=== PATIENT | female | born 2000 | race Caucasian/White ===

== ENCOUNTER 2022-02-16 21:48 | Emergency (ER) | payer BC ==
[~2022-02-16] VITALS: Ht 160 cm; Wt 128.8 kg
[2022-02-16 23:09] LABS: BILIRUBIN,URINE NEGATIVE (NEGATIVE); CLARITY,URINE CLEAR; COLOR,URINE YELLOW; GLUCOSE, URINE (UA) NEGATIVE (NEGATIVE); KETONES,URINE NEGATIVE (NEGATIVE); LEUKOCYTE ESTERASE ,URINE NEGATIVE (NEGATIVE); NITRITE,URINE NEGATIVE (NEGATIVE); PROTEIN,URINE NEGATIVE (NEGATIVE)
[2022-02-16 23:20] LABS: BACTERIA,URINE MODERATE /HPF; WBC,URINE 0-2 /HPF
--- NOTE | 2022-02-16 23:27 | ED General ---
General Chief Complaint: Neurological Problems Stated Complaint: HEAD PAIN Nursing Triage Note: SUDDEN ONSET R FACIAL NUMBNESS, VISION LOSS IN RIGHT EYE LOWER HALF AT 1320 TODAY. REPORTS TACHYCARDIA WITH EPISODE THAT LASTED APPX 20 MINUTES. NOW C/O HEAD PAIN WITH MOVEMENT AND ANY STRAINING. APPX 1 YEAR AGO HAD TOTAL VISION LOSS X 1 MINUTE WITH COMPLETE RESOLUTION OF SYMPTOMS. Source of Information: Patient Exam Limitations: No Limitations History of Present Illness Date Seen by Provider: Feb 16, 2022 Time Seen by Provider: 23:27 Initial Comments Patient is a 21-year-old female who presents to the emergency room with a chief complaint of visual field defect right lower vision around 1230, 1 PM on 02-15-22. She states she was at work and noticed that she was talking that she could not see her right hand as she was gesturing out of her right eye. She states it appeared like "TV static" and I suggested "like a snowstorm" and she states yes. 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 She states symptoms lasted about 20 minutes. In addition to the visual field loss she felt some numbness to her right face. No difficulty speaking. She denies any unilateral weakness. She states around this time she also developed an occipital headache that became global. She states the headache is persisting currently. She currently now about 10 hours later has no visual field defect but continues to have a little bit of subjective decrease in sensation in her right face, right arm and right leg. No personal history of any significant medical problems. She takes some antidepressant medications and medications for sleep. Recently started Seroquel for sleep about a month and a half ago. She states earlier in the year she was working out at the gym and she had complete and total loss of bilateral vision that lasted for only a minute or so. No medical evaluation after this event. She denies fevers chills, URI symptoms. No flu or COVID concerns. She is on control. Not . Non-smoker. She states her father relates a history of "brain aneurysms" on his side of the family and mom has a history of cardiac disease on her side of the family. Nothing is making her headache any better or any worse. She maintains no weakness, balance, instability or coordination issues. 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) Severity: Mild Associated Systoms: Headaches Allergies and Home Medications Allergies Coded Allergies: No Known Drug Allergies (Unverified , 02/16/22) Patient Home Medication List Home Medication List Reviewed: Yes Review of Systems Review of Systems Constitutional: see HPI EENTM: other (visual field loss right eye - inferior portion - earlier in the day); No double vision Respiratory: no symptoms reported Cardiovascular: no symptoms reported Gastrointestinal: no symptoms reported Genitourinary: no symptoms reported Musculoskeletal: no symptoms reported Skin: no symptoms reported Psychiatric/Neurological: Headache, Numbness, Paresthesia All Other Systems Reviewed Negative Unless Noted: Yes Past Vrebtxc-Xmpguh-Lapnch Hx Past Medical History Last Menstrual Period: Feb 09, 2020 Physical Exam Vital Signs Vital Signs - First Documented 02/16/22 22:35 Temp 37.1 Pulse 116 Resp 20 B/P (MAP) 156/101 (119) Pulse Ox 94 O2 Delivery Room Air Capillary Refill : Less Than 3 Seconds Height, Weight, BMI Height: '" Weight: lbs. oz. kg; 50.00 BMI Method: General Appearance: No Apparent Distress, WD/WN, Obese Eyes: Bilateral Eye Normal Inspection, Bilateral Eye PERRL, Bilateral Eye EOMI HEENT: PERRL/EOMI (fundoscopic exam right eye - Normal), Pharynx Normal Neck: Full Range of Motion, Normal Inspection, Supple Respiratory: Lungs Clear, Normal Breath Sounds, No Accessory Muscle Use, No Respiratory Distress Cardiovascular: Regular Rate, Rhythm (100), Normal Peripheral Pulses Gastrointestinal: Non Tender, Soft Extremity: Normal Capillary Refill, Normal Inspection, Normal Range of Motion, Non Tender, No Calf Tenderness, No Pedal Edema Neurologic/Psychiatric: Alert, Oriented x3, Normal Mood/Affect, multifocal lens inspector II-XII Norm as Tested; No Abnormal Cerebellar Tests, No EOM Palsy, No Facial Droop, No Motor Weakness; Sensory Deficit (right side of face; RUE and RLE), Other (normal Finger to nose; neg romberg; normal gait) Skin: Normal Color, Warm/Dry Progress/Results/Core Measures Suspected Sepsis SIRS Temperature: Pulse: 116 Respiratory Rate: 20 Laboratory Tests 02/16/22 23:50: White Blood Count 8.3 Blood Pressure 156 /101 Mean: 119 Laboratory Tests 02/16/22 23:50: Creatinine 0.69, INR Comment 0.8, Platelet Count 312, Total Bilirubin 0.1 Results/Orders Lab Results Laboratory Tests Test 02/16/22 23:02 02/16/22 23:50 Range/Units Urine Color YELLOW Urine Clarity CLEAR Urine pH 6.0 5-9 Urine Specific [place] 1.025 H 1.016-1.022 Urine Protein NEGATIVE NEGATIVE Urine Glucose (UA) NEGATIVE NEGATIVE Urine Ketones NEGATIVE NEGATIVE Urine Nitrite NEGATIVE NEGATIVE Urine Bilirubin NEGATIVE NEGATIVE Urine Urobilinogen 0.2 < = 1.0 MG/DL Urine Leukocyte Esterase NEGATIVE NEGATIVE Urine RBC (Auto) NEGATIVE NEGATIVE Urine RBC NONE /HPF Urine WBC 0-2 /HPF Urine Squamous Epithelial Cells 10-25 H /HPF Urine Crystals NONE /LPF Urine Bacteria MODERATE H /HPF Urine Casts NONE /LPF Urine Mucus NEGATIVE /LPF Urine Culture Indicated NO Influenza Type A (RT-PCR) Not Detected Not Detecte Influenza Type B (RT-PCR) Not Detected Not Detecte SARS-CoV-2 RNA (RT-PCR) Not Detected Not Detecte White Blood Count 8.3 4.3-11.0 10^3/uL Red Blood Count 4.71 3.80-5.11 10^6/uL Hemoglobin 13.1 11.5-16.0 g/dL Hematocrit 39 35-52 % Mean Corpuscular Volume 83 80-99 fL Mean Corpuscular Hemoglobin 28 25-34 pg Mean Corpuscular Hemoglobin Concent 33 32-36 g/dL Red Cell Distribution Width 12.7 10.0-14.5 % Platelet Count 312 130-400 10^3/uL Mean Platelet Volume 10.4 9.0-12.2 fL Immature Granulocyte % (Auto) 0 % Neutrophils (%) (Auto) 54 42-75 % Lymphocytes (%) (Auto) 38 12-44 % Monocytes (%) (Auto) 7 0-12 % Eosinophils (%) (Auto) 1 0-10 % Basophils (%) (Auto) 1 0-10 % Neutrophils # (Auto) 4.5 1.8-7.8 10^3/uL Lymphocytes # (Auto) 3.1 1.0-4.0 10^3/uL Monocytes # (Auto) 0.6 0.0-1.0 10^3/uL Eosinophils # (Auto) 0.1 0.0-0.3 10^3/uL Basophils # (Auto) 0.0 0.0-0.1 10^3/uL Immature Granulocyte # (Auto) 0.0 0.0-0.1 10^3/uL Prothrombin Time 11.9 L 12.2-14.7 SEC INR Comment 0.8 0.8-1.4 Activated Partial Thromboplast Time 26 24-35 SEC D-Dimer 0.41 0.00-0.49 UG/ML Sodium Level 138 135-145 MMOL/L Potassium Level 3.7 3.6-5.0 MMOL/L Chloride Level 104 98-107 MMOL/L Carbon Dioxide Level 24 21-32 MMOL/L Anion Gap 10 5-14 MMOL/L Blood Urea Nitrogen 12 7-18 MG/DL Creatinine 0.69 0.60-1.30 MG/DL Estimat Glomerular Filtration Rate 126 BUN/Creatinine Ratio 17 Glucose Level 90 70-105 MG/DL Calcium Level 9.4 8.5-10.1 MG/DL Corrected Calcium 9.5 8.5-10.1 MG/DL Total Bilirubin 0.1 0.1-1.0 MG/DL Aspartate Amino Transf (AST/SGOT) 12 5-34 U/L Alanine Aminotransferase (ALT/SGPT) 16 0-55 U/L Alkaline Phosphatase 47 40-136 U/L Troponin I < 0.028 <0.028 NG/ML Total Protein 7.4 6.4-8.2 GM/DL Albumin 3.9 3.2-4.5 GM/DL My Orders Orders - KYLE DUGGAN MD Cbc With Automated Diff (02/16/22 23:39) Protime With Inr (02/16/22 23:39) Partial Thromboplastin Time (02/16/22 23:39) Comprehensive Metabolic Panel (02/16/22 23:39) Fibrin Degradation Products (02/16/22 23:39) Troponin I [place] (02/16/22 23:39) Ekg Tracing (02/16/22 23:39) Accucheck Stat ONCE (02/16/22 23:39) Ed Iv/Invasive Line Start (02/16/22 23:39) Ed Iv/Invasive Line Start (02/16/22 23:39) Vital Signs Stroke Patient Q15M (02/16/22 23:39) O2 (02/16/22 23:39) Intake & Output 06,14,22 (02/16/22 23:39) Monitor-Rhythm Ecg Trace Only (02/16/22 23:39) Dysphagia Screening Tool Q10MX1 (02/16/22 23:39) Post Thrombolytic Adminstratio (02/16/22 23:39) Lipid Panel (02/17/22 06:00) Chest 1 View, Ap/Pa Only (02/17/22 00:01) Ct Angio Head/Neck (02/17/22 00:01) Iohexol Injection (Omnipaque 350 Mg/Ml 1 (02/17/22 00:45) Sodium Chloride Flush (Catheter Flush Sy (02/17/22 00:45) Ns (Ivpb) (Sodium Chloride 0.9% Ivpb Bag (02/17/22 00:45) Medications Given in ED Current Medications Medications Dose Ordered Sig/Rubi Route Start Time Stop Time Status Last Admin Dose Admin Iohexol 100 ml ONCE ONCE IV 02/17/22 00:45 02/17/22 00:46 DC 02/17/22 00:47 75 ML Sodium Chloride 10 ml NEEDED PRN IV 02/17/22 00:45 02/17/22 00:47 10 ML Sodium Chloride 100 ml ONCE ONCE IV 02/17/22 00:45 02/17/22 00:46 DC 02/17/22 00:47 80 ML Vital Signs/I&O 02/16/22 22:35 Temp 37.1 Pulse 116 Resp 20 B/P (MAP) 156/101 (119) Pulse Ox 94 O2 Delivery Room Air Capillary Refill : Less Than 3 Seconds Blood Pressure Mean: 119 Point of Care Testing Finger Stick Blood Glucose: 89 Blood Glucose Action Taken: NOTIFIED Progress Note : Time: 01:24 Progress Note Patient seen and evaluated, paresthesias to the right face, upper and lower extremity as well as transient loss of vision in the lower half of the right eye 10 hours prior to arrival. Evaluation today includes stroke evaluation/protocol work-up. She has mild headache not requesting any medications. No recent illnesses. Stroke work-up negative including CT brain noncontrast and CT head and neck angio. Her vital signs are stable. Blood pressure has come down to 130s over 80s. I strongly encouraged her to follow-up with primary care for further evaluation management of hypertension. She is given good return precautions. She is comfortable with the work-up. I have also encouraged her to follow-up with an eye doctor. We will give her contact information for [facility]. All questions are sought and answered. Patient is stable for discharge ECG Initial ECG Impression Date: Feb 16, 2022 Initial ECG Impression Time: 23:50 Initial ECG Rate: 89 Initial ECG Rhythm: Normal Sinus Initial ECG Intervals: Normal Initial ECG Impression: Normal Comment low voltage lead II; no ectopy; no ST elevation or depression; normal intervals Diagnostic Imaging Diagonstic Imaging: CT Comments CT head noncontrast, interpretation per stat rad: NEGATIVE CTA head and neck, interpretation per stat rad: NO acute findings Departure Impression Primary Impression: Visual field defect of right eye Additional Impressions: Paresthesia of right upper and lower extremity Elevated blood pressure reading Disposition: HOME, SELF-CARE Condition: Stable Departure-Patient Inst. Decision time for Depature: 01:27 Referrals: [facility]/QI BENITEZ OD,LOCAL PHYSICIAN (PCP) Primary Care Physician Patient Instructions: High Blood Pressure ED Add. Discharge Instructions: Occasionally complex migraines can cause symptoms that mimic stroke. You can take over the counter Ibuprofen 3 tablets (600mg) as needed for headache. Always take Ibuprofen with food. Also extra strength Tylenol, 2 tablets every 6 hours. You will need to follow-up with a primary care physician for further evaluation and management of your elevated blood pressure today. Please keep a close eye on this as good control of blood pressures will keep you healthy. I do recommend you follow-up with an eye doctor. I have put contact information on your discharge paperwork [facility]. If you have any worsening symptoms of vision loss or disturbance, severe headache, weakness in the muscles of your face on one side or one arm and leg weaker than the other you need to come immediately back to the emergency department. KYLE DUGGAN MD Feb 16, 2022 23:27
[2022-02-17 00:16] LABS: BASOPHILS % (AUTO) 1 % (0-10); EOSINOPHILS # (AUTO) 0.1 10^3/uL (0.0-0.3); EOSINOPHILS % (AUTO) 1 % (0-10); HEMATOCRIT 39 % (35-52); HEMOGLOBIN 13.1 g/dL (11.5-16.0); LYMPHOCYTES # (AUTO) 3.1 10^3/uL (1.0-4.0); LYMPHOCYTES % (AUTO) 38 % (12-44); MEAN CORPUSCULAR HEMOGLOBIN 28 pg (25-34); MEAN CORPUSCULAR HGB CONC 33 g/dL (32-36); MEAN CORPUSCULAR VOLUME 83 fL (80-99); MEAN PLATELET VOLUME 10.4 fL (9.0-12.2); MONOCYTES # (AUTO) 0.6 10^3/uL (0.0-1.0); MONOCYTES % (AUTO) 7 % (0-12); NEUTROPHILS # (AUTO) 4.5 10^3/uL (1.8-7.8); NEUTROPHILS % (AUTO) 54 % (42-75); PLATELET COUNT 312 10^3/uL (130-400); WHITE BLOOD COUNT 8.3 10^3/uL (4.3-11.0)
[2022-02-17 00:30] LABS: ALBUMIN 3.9 GM/DL (3.2-4.5); CHLORIDE 104 MMOL/L (98-107); POTASSIUM 3.7 MMOL/L (3.6-5.0); SODIUM 138 MMOL/L (135-145)
[2022-02-17 00:31] LABS: CALCIUM 9.4 MG/DL (8.5-10.1)
[2022-02-17 00:32] LABS: GLUCOSE 90 MG/DL (70-105); TOTAL PROTEIN 7.4 GM/DL (6.4-8.2)
[2022-02-17 00:33] LABS: CARBON DIOXIDE 24 MMOL/L (21-32); FIBRIN DEGRADATION PRODUCTS 0.41 UG/ML (0.00-0.49); INR 0.8 (0.8-1.4); PROTHROMBIN TIME PATIENT 11.9 SEC (12.2-14.7)
[2022-02-17 00:34] LABS: BILIRUBIN,TOTAL 0.1 MG/DL (0.1-1.0)
[2022-02-17 00:36] LABS: ALKALINE PHOSPHATASE 47 U/L (40-136); CREATININE SERUM 0.69 MG/DL (0.60-1.30); GFR ESTIMATED 126
[2022-02-17 00:37] LABS: BUN/CREATININE RATIO 17
[2022-02-17 00:39] LABS: ALANINE AMINOTRANSFERASE 16 U/L (0-55)
[2022-02-17] MEDS ORDERED: NS 100 ML (IVPB) BAG IV ONE (00:45)
[2022-02-17] MEDS ORDERED: IOHEXOL 350 MG/ML 100 ML (OMNIPAQUE 350) VIAL IV ONE (00:45)
[2022-02-17] MEDS ORDERED: CATHETER FLUSH 10 ML SYR IV PRN (00:45)
[2022-02-17 01:34] VITALS: BP 131/84
--- NOTE | 2022-02-17 06:06 | Diagnostic Imaging Report ---
INDICATION: Stroke. FINDINGS: The heart size, mediastinal configuration, and pulmonary vascularity are within normal limits. There is no pleural effusion, pneumothorax, or pneumonia. The osseous structures are unremarkable. IMPRESSION: No acute cardiopulmonary abnormality. Dictated by: Dictated on workstation # [id number]
--- NOTE | 2022-02-17 07:59 | Diagnostic Imaging Report ---
PROCEDURE: CT angiography of the head and CT angiography of the neck with and without contrast. TECHNIQUE: Contiguous noncontrast images were obtained from the skull base through the vertex. After intravenous contrast administration, helical CT angiography of the neck was performed. Source data was reformatted into 3D MIP projections. Delayed post contrast acquisition was also obtained. Auto Exposure Controls were utilized during the CT exam to meet ALARA standards for radiation dose reduction. Date: February 17, 2022. Indication: 21-year-old female, sudden onset right facial numbness and visual loss of the right eye in the lower half. Tachycardia. Head pain. Comparison: None available. Findings: There is no identified skull fracture. The paranasal sinuses, mastoid air cells, and middle ears are well aerated. There is unremarkable CT assessment of the orbits. Given symptoms, correlation with ophthalmology exam is recommended. The ventricles and additional CSF spaces are normal in size and configuration for patient age. There is no identified abnormal extra-axial fluid collection. There is no evidence of acute intracranial hemorrhage. There is no mass effect or midline shift. There is no identified abnormal intracranial enhancement. The left common carotid artery is patent. The left internal carotid artery is patent. The left middle cerebral artery is patent. The left anterior cerebral artery is patent. The right anterior cerebral artery is patent. The right middle cerebral artery is patent. The right internal carotid artery is patent. The right common carotid artery is patent. There is conventional origin of the left vertebral artery. The left vertebral artery is patent. The basilar artery is patent. The left posterior cerebral artery is patent. The right posterior cerebral artery is patent. There is a patent right posterior communicating artery predominantly supplying blood flow to the right posterior cerebral artery. The proximal aspect of the right and left posterior inferior cerebellar arteries are patent. The right vertebral artery is patent and conventional in origin. There is no identified dissection or aneurysm. There is no evidence of a venous sinus thrombosis. The visualized portions of the lung bases are clear. There is no identified acute bony abnormality. Impression: 1. No identified acute intracranial abnormality. 2. Patent arterial head and neck vasculature without high-grade stenosis, large vessel occlusion, dissection, or aneurysm. 3. Concerning provided history in particular the symptoms of vision loss, further evaluation with MRI brain without and with intravenous contrast and ophthalmology exam would be recommended. Agree with the provided preliminary report. Dictated by: Dictated on workstation # [id number]
== END 2022-02-17 01:39 | disposition home or self-care (01) ==
LOC: ER 21:52
DX: H53.40 Unspecified visual field defects (principal); R20.2 Paresthesia of skin; R03.0 Elevated blood-pressure reading, without diagnosis of hypertension; E66.9 Obesity, unspecified; Z68.43 Body mass index [BMI] 50.0-59.9, adult; Z20.822 Contact with and (suspected) exposure to COVID-19
CPT/HCPCS: 36415; 70496; 70498; 71045; 80053; 81000; 84484; 84703; 85025; 85379; 85610; 85730; 87636; 93005; 93041